=== PATIENT | female | born 1950 | race African-American/Black ===

== ENCOUNTER → 2016-07-20 | Day surgery (SDC) | payer MEDICARE ==
[~2016-07-20] MED LIST: ALLO100T PO; AMLO10TA2 PO; ATEN25TA PO; IV RINGERS,LACTATED 1000ML 1,000 ML IV SCH; LIDOCAINE 2% PF Vial for OR 5 ML VIAL. ONE; LORA10TA3 PO; LOSA100T6 PO; PROPOFOL 20 ML IV ONE
[2016-07-20 10:50] VITALS: BP 157/77
--- NOTE | 2016-07-21 13:18 | PATHOLOGY ---
PATHOLOGY REPORT * * * * * * * * FINAL DIAGNOSIS: A. Colonic mucosa, sigmoid polypectomy: - Hyperplastic polyp. B. Colorectal mucosa, rectal polypectomy: - Hyperplastic polyp. COMMENT: There are no adenomatous changes or evidence of malignancy. (JPM:csd; d/t: 07/21/2016) REPORT ELECTRONICALLY SIGNED BY: Hiram Singletary M.D. DATE/TIME: 07/21/2016 13:17 * * * * * * * * GROSS PATHOLOGY: A. Received in formalin labeled "Gege Cadena and sigmoid polyp," are 3 segments of mendoza soft tissue measuring 1.0 x 0.2 x 0.2 cm in aggregate dimensions and ranging from 0.2 to 0.7 cm in maximum dimension. The specimen is submitted entirely in cassette A1. B. Received in formalin labeled "Gege Cadena and rectal polyp," are 2 segments of mendoza soft tissue measuring 0.6 x 0.2 x 0.2 cm in aggregate dimensions and measuring 0.2 and 0.4 cm in maximum dimension. The specimen is submitted entirely in cassette B1. (TTL; 07/20/2016) INITIAL CPT CODE(S): A; 92132 B; 81650 Professional services performed [place] [address] Technical services performed by [facility] at [address] [place] [address] [address] [address]. SPECIMEN(S) RECEIVED: A.Sigmoid polypectomy B.Rectal polypectomy CLINICAL HISTORY: Screening, history of polyps PATIENT: GEGE CADENA /AGE: 510/09/1950 (Age: 65) PATIENT #: [id number] ALT CASE #: SPECIMEN COLLECTION DATE: 07/20/2016 SPECIMEN RECEIVED DATE: 07/20/2016 [facility] - [id number] [place] [address] - PHONE: [phone] * * * END OF REPORT * * *
== END | disposition home or self-care (01) ==
LOC: SURG 08:42
PROVIDERS: ATTEND Internal Medicine Gastroenterology
DX: Z12.11 Encounter for screening for malignant neoplasm of colon (principal); K62.1 Rectal polyp; D12.5 Benign neoplasm of sigmoid colon; I10 Essential (primary) hypertension; Z83.3 Family history of diabetes mellitus; Z72.89 Other problems related to lifestyle; Z90.710 Acquired absence of both cervix and uterus
CPT/HCPCS: 45380; 88305; J2704